=== PATIENT | male | born 2000 | race Caucasian/White ===

== ENCOUNTER → 2023-02-12 | Outpatient (CLI) | payer BC ==
--- NOTE | 2023-02-12 17:19 | Diagnostic Imaging Report ---
EXAMINATION: Left hand radiograph TECHNIQUE: AP, oblique, and lateral views of the left hand obtained. HISTORY: Left hand pain after injury. Pain in 2nd and 3rd digit. COMPARISON: None available. FINDINGS: No acute osseous findings. Normal joint spaces. No unexpected radiopaque foreign bodies. IMPRESSION: No acute osseous findings. Recommend follow-up left hand radiograph in 10 days to assess for any occult fractures. Dictated by: Dictated on workstation # [id number]
== END ==
LOC: RAD 15:28
PROVIDERS: ATTEND Nurse Practitioner Family
DX: S69.92XA Unspecified injury of left wrist, hand and finger(s), initial encounter (principal); X58.XXXA Exposure to other specified factors, initial encounter
CPT/HCPCS: 73130